=== PATIENT | female | born 2000 | race Caucasian/White ===

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

== ENCOUNTER 2018-11-03 10:00 | Emergency (ER) | payer OTHER ==
[2018-11-03] MEDS ORDERED: ONDANSETRON HCL/PF 4 MG/ 2ML VIAL IVP ONE (10:21)
--- NOTE | 2018-11-03 10:30 | ED Physician Documentation ---
Abdominal Pain - HISTORIAN Historian: patient - HPI Stated Complaint: vomiting Chief Complaint: Abdominal Pain Additonal Information: Patient presents to ED with a 12 hour history of nausea/vomiting and abdominal pain. Patient states she had gall bladder surgery 6 days ago. She was doing great until last night when she began to have more abdominal pain. She took some hydrocodone last night and went to bed. This morning she woke up with increased epigastric/RLQ pain with associated nausea/vomiting. She denies fever or chills. Incision sites show no signs of infection or drainage. Onset: hours (12) Context: denies: out of country travel Severity: moderate Quality: aching Associated Symptoms: nausea, vomiting. denies: fever, chills, diarrhea Relieved by: remaining still Further Comments: no - ROS CONST: denies: recent illness GI/: denies: constipation CVS/RESP: denies: shortness of breath EYES/ENT: none MS/SKIN/LYMPH: denies: leg swelling, rash NEURO/PSYCH: denies: headache - SOCIAL HX Smoking History: non-smoker Alcohol Use: none Drug Use: none - FAMILY HX Family History: none - PAST HX Past History: none Ischemic Bowel Risk Factors: none Other History: none Surgeries/Procedures: cholecystectomy (10/28/18) Home Medications: Ambulatory Orders Medication Instructions Recorded Olanzapine [Olanzapine Odt] 10 mg PO BID PRN #10 tab.rapdis 11/03/18 Promethazine HCl [Phenergan] 25 mg PO Q6 #20 tablet 11/03/18 Allergies/Adverse Reactions: Allergies Allergy/AdvReac Type Severity Reaction Status Date / Time No Known Allergies Allergy Verified 11/03/18 10:37 - VITAL SIGNS Vital Signs: Vital Signs Temp Pulse Resp BP Pulse Ox 98.3 F 97 H 16 134/82 99 11/03/18 10:13 11/03/18 10:13 11/03/18 10:13 11/03/18 10:13 11/03/18 10:13 - REVIEWED ASSESSMENTS Nursing Assessment Reviewed: Yes Vitals Reviewed: Yes ED Results Lab/Radiology - Lab Results Lab Results: Lab Results 11/03/18 11/03/18 11/03/18 10:35 10:35 10:35 WBC 10.30 K/ul K/ul (4.00-12.00) RBC 5.28 M/ul H M/ul (3.90-5.20) Hgb 15.6 g/dL g/dL (12.0-16.0) Hct 47.5 % H % (34.5-46.5) MCV 90.0 fl fl (80.0-100.0) MCH 29.5 pg pg (28.0-34.0) MCHC 32.7 g/dL g/dL (30.0-36.0) RDW 12.4 % % (11.3-14.3) Plt Count 241 K/mm3 K/mm3 (130-400) Neut % (Auto) 84.0 % H % (39.0-79.0) Lymph % (Auto) 11.9 % L % (16.0-50.0) [place] % (Auto) 2.5 % % (0.0-11.0) Eos % (Auto) 1.1 % % (0.0-6.8) Baso % (Auto) 0.5 (0.0-1.5) Neut # (Auto) 8.6 # k/uL H # k/uL (1.4-7.7) Lymph # (Auto) 1.2 # k/uL # k/uL (0.6-4.0) [place] # (Auto) 0.3 # k/uL # k/uL (0.0-0.9) Eos # (Auto) 0.1 # k/uL # k/uL (0.0-0.6) Baso # (Auto) 0.1 # k/uL # k/uL (0.0-0.5) Sodium 138 mmol/L mmol/L (136-145) Potassium 3.9 mmol/L mmol/L (3.5-5.1) Chloride 102 mmol/L mmol/L (98-107) Carbon Dioxide 29 mmol/L mmol/L (22-30) BUN 8 mg/dL mg/dL (7-17) Creatinine 0.80 mg/dL mg/dL (0.52-1.04) Estimated Creat Clear 160 Est GFR ( Amer) > 60 (60 - ) Est GFR (Non-Af Amer) > 60 (60 - ) Glucose 109 mg/dL H mg/dL (74-106) Calcium 9.4 mg/dL mg/dL (8.4-10.2) Total Bilirubin 0.6 mg/dL mg/dL (0.2-1.3) AST 24 U/L U/L (15-46) ALT 71 U/L H U/L (13-69) Alkaline Phosphatase 63 U/L U/L (38-126) Total Protein 7.6 g/dL g/dL (6.3-8.2) Albumin 4.8 g/dL g/dL (3.5-5.0) Serum HCG, Qual Negative (NEGATIVE) - Orders Orders: ED Orders Category Date Time Status Place IV Lock 1T Care 11/03/18 10:[address] ABD & PELVIS W/ CON Stat Exams 11/03/18 Taken CBC/PLATELET/DIFF Routine Lab 11/03/18 10:35 Completed CMP Routine Lab 11/03/18 10:35 Completed SERUM HCG Stat Lab 11/03/18 10:35 Completed 0.9 % Sodium Chloride [Normal Saline] 1,000 ml Med 11/03/18 10:38 Discontinued IV .STK-MED 0.9 % Sodium Chloride [Normal Saline] 1,000 ml Med 11/03/18 10:38 Discontinued IV Q1H 0.9 % Sodium Chloride [Sodium Chloride] 50 ml Med 11/03/18 11:43 Discontinued IV .STK-MED HYDROmorphone HCL/PF [Dilaudid] Med 11/03/18 11:46 Discontinued 0.5 mg IVP NOW ONE HYDROmorphone HCL/PF [Dilaudid] Med 11/03/18 11:44 Discontinued 1 mg IVP NOW ONE Ondansetron HCl/Pf [Zofran 4 mg/2 ml] Med 11/03/18 10:21 Discontinued 4 mg IVP NOW ONE Promethazine HCl [Phenergan] Med 11/03/18 11:43 Discontinued 25 mg .ROUTE .STK-MED ONE Promethazine HCl [Phenergan] 25 mg Med 11/03/18 11:44 Discontinued 0.9 % Sodium Chloride [Sodium Chloride] 50 ml IV NOW Abdominal Pain Physical Exam - Physical Exam General Appearance: no acute distress, alert EENT: JCARLOS NECK: supple RESPIRATORY: no resp distress, breath sounds normal CVS: reg rate & rhythm, heart sounds normal ABDOMEN: soft, tenderness (RLQ/epigastric), guarding BACK: normal inspection, no CVA tenderness SKIN: warm/dry EXTREMITIES: non-tender, normal range of motion NEURO: oriented X3, motor nml Vital Signs: Vital Signs Temp Pulse Resp BP Pulse Ox 98.3 F 97 H 16 134/82 99 11/03/18 10:13 11/03/18 10:13 11/03/18 10:13 11/03/18 10:13 11/03/18 10:13 Discharge Clincal Impression: Gastroenteritis Prescriptions: Olanzapine [Olanzapine Odt] 10 mg PO BID PRN #10 tab.rapdis PRN Reason: persistent nausea/vomiting Promethazine HCl [Phenergan] 25 mg PO Q6 #20 tablet Referrals: Primary Doctor,No [Primary Care Provider] - 2 Days Additional Instructions: 1. Take Promethazine every 6 hours as needed for nausea/vomiting 2. Take Olanzapine every 12 hours as needed for persistent nausea/vomiting. You may take this in addition to Promethazine 3. Take Pepcid 20mg every 12 hours until symptoms have resolved 4. Follow up with Surgeon as already scheduled 5. If symptoms persists go to [facility] ER for further evaluation and Surgical consultation by your surgeon. 6. Return to the nearest ER for chest pain, shortness of breath, syncope or allergic reaction. Condition: Stable Disposition: 01 HOME, SELF-CARE Decision to Admit: NO Date of Decison to Admit: 11/03/18 Decision Time: 13:08
[2018-11-03] MEDS ORDERED: 0.9 % SODIUM CHLORIDE 1,000 ML IV ONE ×2 (10:38)
[2018-11-03 10:47] LABS: BASOPHILS % 0.5 (0.0-1.5); EOSINOPHILS % 1.1 % (0.0-6.8); MEAN CORPUSCULAR HEMOGLOBIN 29.5 pg (28.0-34.0); MONOCYTES % 2.5 % (0.0-11.0); NEUTROPHILS # 8.6 # k/uL (1.4-7.7)
[2018-11-03 10:58] LABS: eGFR (Non-African) > 60
[2018-11-03] MEDS ORDERED: PROMETHAZINE HCL 25 MG/ML VIAL ONE (11:43)
[2018-11-03] MEDS ORDERED: 0.9 % SODIUM CHLORIDE 50 ML IV ONE (11:43)
[2018-11-03] MEDS ORDERED: PROMETHAZINE HCL 25 MG in 0.9 % SODIUM CHLORIDE 50 ML IV ONE (11:44)
[2018-11-03] MEDS ORDERED: HYDROmorphone HCL/PF 1 MG/ML VIAL IVP ONE ×2 (11:44→11:46)
[2018-11-03] MEDS ORDERED: FAMOTIDINE 20 MG/2 ML VIAL IVP ONE (12:56)
[2018-11-03 13:25] VITALS: BP 139/82
--- NOTE | 2018-11-03 19:00 | Diagnostic Imaging Report ---
Report Submission Date: Nov 03, 2018 12:54:23 PM INTERMEDIATE CARD TENDER Patient Study Name: MARIE MAYES Date: Nov 03, 2018 11:25:21 AM INTERMEDIATE CARD TENDER Modality Type: CT\SR Gender: F Description: CT ABD PELVIS W/ CON : 98 Institution: [facility] Physician: LIDIA BROWNING CT abdomen and pelvis History: Status post laparoscopic cholecystectomy with bile emesis and abdominal pain Technique: Helically acquired images were obtained from the hemidiaphragms to the pelvic floor following IV but no oral contrast. Findings: Areas of induration are present along the subcutaneous fat at the right upper quadrant presumably relating to the recent surgery. There is additionally induration in the periumbilical and right paracentral ventral subcutaneous fat at the mid abdomen, also consistent with the sequelae of trocar placement. Clips from a cholecystectomy are present. No abnormal fluid collections are identified at the cholecystectomy site. The common bile duct is upper limits of normal at [address], there is no evident intraductal stone. The liver, spleen, adrenal glands, pancreas, kidneys and the abdominal aorta are unremarkable. Small and large bowel loops are normal in caliber. The appendix appears normal. There is a small amount of free fluid in the pelvis which may be postoperative in nature. This fluid is low-density. The uterus and adnexal structures are unremarkable for age and the bladder is unremarkable. Lung bases are clear. No osseous abnormalities are noted. No free air is seen. Impression: Status post cholecystectomy. No abnormal fluid collections are noted at the cholecystectomy site. The common bile duct is top normal at 6 mm and no intraductal stones are seen. Small amount of free fluid in the pelvis which may be postoperative in nature. Induration in the periumbilical and right paracentral subcutaneous fat at the midline ventral abdomen and within the subcutaneous fat at the right upper abdomen consistent with post laparoscopic findings. Electronically signed on Nov 03, 2018 12:54:23 PM INTERMEDIATE CARD TENDER by: Melissa TURCIOS
== END 2018-11-03 13:23 | disposition home or self-care (01) ==
LOC: ED 10:00
DX: K52.9 Noninfective gastroenteritis and colitis, unspecified (principal); Z90.49 Acquired absence of other specified parts of digestive tract
CPT/HCPCS: 36415; 74177; 80053; 84703; 85025; 96374; 96375; 99283; 99284; J1170; J2405; J2550; J7030; Q9967; S0028; S1016